=== PATIENT | female | born 2000 | race Caucasian/White ===

== ENCOUNTER 2024-09-15 08:18 | Outpatient (CLI) | payer BC, SELFPAY ==
--- NOTE | ~2024-09-15 | US_ITS ---
US breast RT limited INDICATION: Palpable right breast abnormality TECHNIQUE: Dedicated Limited right breast ultrasound COMPARISON: No prior studies for comparison. FINDINGS: The right breast is/are composed of normal heterogeneous echotexture without focal solid or cystic mass. IMPRESSION: 1: Normal right breast ultrasound. Reviewed, dictated and finalized at location A.
--- OUTSIDE RECORDS SUMMARY | 2024-09-15 08:23 | XMS_ITS | Clinical Summary ---
Author Organization [facility] Address [address] [place] [id number] Care Team Providers Care Blood Donor Recruiter Name Role Phone No, Physician Primary Care Provider Allergies Active Allergy Reactions Criticality Noted Date Comments Amoxicillin Hypotension High 04/21/2021 Medications Crysellandrea, 28, 0.3-30 mg-mcg per tablet 1 Active polymyxin B-trimethoprim (POLYTRIM) ophthalmic solution Administer 1 drop into the left eye every 3 hours while awake for 7 days 10 mL 1 Active Active Problems No known active problems Surgical History Surgery Date Site/Laterality Comments TONSILLECTOMY AND ADENOIDECTOMY Social History Tobacco Use Types Packs/Day Years Used Date Smoking Tobacco: Never Personal Safety Answer Date Recorded Getting School Help Needed Not on file 08/07 Comments Unknown Sex and Gender Information Value Date Recorded Sex Assigned at Not on file Legal Sex Female 11:45 AM PROFILE GRINDER TECHNICIAN Gender Identity Not on file Sexual Orientation Not on file Obstetrics History Last Filed Vital Signs Vital Sign Reading Time Taken Comments Blood Pressure 110/80 04/21/2021 12:01 PM PROFILE GRINDER TECHNICIAN Pulse 92 04/21/2021 12:01 PM PROFILE GRINDER TECHNICIAN Temperature 37.4 C (99.3 F) 04/21/2021 12:01 PM PROFILE GRINDER TECHNICIAN Respiratory Rate 16 04/21/2021 12:01 PM PROFILE GRINDER TECHNICIAN Oxygen Saturation 98% 04/21/2021 12:01 PM PROFILE GRINDER TECHNICIAN Inhaled Oxygen Concentration - - Weight 66.2 kg (146 lb) 04/21/2021 12:01 PM PROFILE GRINDER TECHNICIAN Height 165.1 cm (5' 5 ) 04/21/2021 12:01 PM PROFILE GRINDER TECHNICIAN Body Mass Index 24.3 04/21/2021 12:01 PM PROFILE GRINDER TECHNICIAN Plan of Treatment Not on file Insurance [employer] [place] Care Teams Blood Donor Recruiter Relationship Specialty Start Date End Date No, Physician PCP - General 04/21/21
--- OUTSIDE RECORDS SUMMARY | 2024-09-15 08:23 | XMS_ITS | Clinical Summary ---
Author Organization [facility] Address [address] [place] [id number] Care Team Providers Care Peoplesoft Business Analyst Name Role Phone Unavailable Primary Care Provider Unavailabl e Social History Tobacco Use Types Packs/Day Years Used Date Smoking Tobacco: Never Assessed Comments Unknown Sex and Gender Information Value Date Recorded Sex Assigned at Not on file Legal Sex Female 10:31 PM TECHNICAL ASSOC Gender Identity Not on file Sexual Orientation Not on file Last Filed Vital Signs Vital Sign Reading Time Taken Comments Blood Pressure 118/60 12/14/2011 5:20 PM CDT Pulse 75 12/14/2011 5:20 PM CDT Temperature - - Respiratory Rate - - Oxygen Saturation - - Inhaled Oxygen Concentration - - Weight 49.9 kg (110 lb) 12/14/2011 5:20 PM CDT Height 157.5 cm (5' 2 ) 12/14/2011 5:20 PM CDT Body Mass Index 20.12 12/14/2011 5:20 PM CDT Plan of Treatment Health Maintenance Due Date Last Done Comments Cervical Cancer Screening Pa p Smear (Age 21 to 29) Every 3 Years 1999 Cervical Cancer Screening 1999 Annual Physical 11/21/2002 HPV Vaccines (1 - 3-dose series) 11/21/2014 Hepatitis C 11/21/2017 DTaP, Tdap and Td Vaccines ( 1 - Tdap) 11/21/2018 Hepatitis B Vaccines (1 of 3 - 19+ 3-dose series) 11/21/2018 COVID-19 Vaccine (2023-2 5 season) 2024 Meningococcal B Vaccine Aged Out No l onger eligible based on patient's age to complete this topic Meningococcal Vaccine Aged Out No aracely desirae eligible based on patient's age to complete this topic Pneumococcal Vaccine: Pediat rics (0 to 5 Years) and At-Risk Patients (6 to 49 Years) Aged Out No longer eligible b ased on patient's age to complete this topic RSV Immunizations Under 20 Months Aged Out No longer eligible based on patient's age to complete this topic
--- OUTSIDE RECORDS SUMMARY | 2024-09-15 08:23 | XMS_ITS | Referral Summary ---
Author Organization [facility] Address [address] [place] [id number] Care Team Providers Care Shaft Tender Name Role Phone No, Physician Primary Care Provider [phone] Allergies Active Allergy Reactions Criticality Noted Date Comments Amoxicillin Hypotension High 04/21/2021 Medications Crysellandrea, 28, 0.3-30 mg-mcg per tablet 1 Active polymyxin B-trimethoprim (POLYTRIM) ophthalmic solution Administer 1 drop into the left eye every 3 hours while awake for 7 days 10 mL 1 Active Active Problems No known active problems Social History Tobacco Use Types Packs/Day Years Used Date Smoking Tobacco: Never Personal Safety Answer Date Recorded Getting School Help Needed Not on file 08/07 Comments Unknown Sex and Gender Information Value Date Recorded Sex Assigned at Not on file Legal Sex Female 11:45 AM HAND TUBE BENDER Gender Identity Not on file Sexual Orientation Not on file Last Filed Vital Signs Vital Sign Reading Time Taken Comments Blood Pressure 110/80 04/21/2021 12:01 PM HAND TUBE BENDER Pulse 92 04/21/2021 12:01 PM HAND TUBE BENDER Temperature 37.4 C (99.3 F) 04/21/2021 12:01 PM HAND TUBE BENDER Respiratory Rate 16 04/21/2021 12:01 PM HAND TUBE BENDER Oxygen Saturation 98% 04/21/2021 12:01 PM HAND TUBE BENDER Inhaled Oxygen Concentration - - Weight 66.2 kg (146 lb) 04/21/2021 12:01 PM HAND TUBE BENDER Height 165.1 cm (5' 5 ) 04/21/2021 12:01 PM HAND TUBE BENDER Body Mass Index 24.3 04/21/2021 12:01 PM HAND TUBE BENDER Plan of Treatment Not on file Insurance [facility] Care Teams Shaft Tender Relationship Specialty Start Date End Date No, Physician PCP - General 04/21/21
== END 2024-09-15 08:19 | disposition home or self-care (01) ==
LOC: ANHIMG 08:19
PROVIDERS: Visit Provider Obstetrics & Gynecology
DX: N63.15 Unspecified lump in the right breast, overlapping quadrants (principal)
CPT/HCPCS: 76642

== ENCOUNTER 2025-05-09 10:46 | Emergency (ER) | payer BC, SELFPAY ==
[2025-05-09 10:54] VITALS: BP 138/76; PULSE 102; RESP 19; TEMP 36.6; O2SAT 99
--- NOTE | 2025-05-09 11:02 | ED_ITS ---
HPI - URI/Sore Throat General Chief Complaint: Upper Respiratory Infection Stated Complaint: URI Time Seen by Provider: 05/09/25 11:10 Source: patient and RN notes reviewed Mode of arrival: ambulatory Limitations: no limitations History of Present Illness HPI Narrative: 24-year-old female presents Express Care complaining of upper respiratory symptoms for 3 days. Patient reports cough, congestion, sinus pressure, sore throat, fevers, body aches. Patient denies any other upper respiratory symptoms, chest pain, nausea vomiting, diarrhea, difficulty breathing, or any other symptoms. Patient taking DayQuil and NyQuil was some relief. Patient says she is having of hard time sleeping at night due to the cough. Patient denies any significant past medical problems. Related Data Home Medications ?Medication ?Instructions ?Recorded ?Confirmed ?Last Taken ?Type clindamycin phosphate 1 % topical 1 applic topical BLAINE LY 01/30/25 01/30/25 Unk nown History gel tretinoin 0.025 % topical gel 1 applic topical QHS 02/1501/30/25 Unknown History (Retin-A) Allergies Allergy/AdvReac Type Severity Reaction Status Date / Time amoxicillin Allergy Mild Rash Verified 05/09/25 10:54 Review of Systems Review of Systems: CONSTITUTIONAL: Denies fever, chills, or sweats. EYES: Denies visual changes, redness, or discharge. ENT: Denies rhinorrhea, or otalgia. Positive for congestion and sinus pressure, sore throat. CARDIOVASCULAR: Denies chest pain, palpitations, or edema. RESPIRATORY: Positive for cough. Negative for wheezing or Dyspnea. GASTROINTESTINAL: Denies abdominal pain, nausea, vomiting, or diarrhea. GENITOURINARY: Denies dysuria or hematuria. SKIN: Denies rash or itching. MUSCULOSKELETAL: Denies back pain, joint pain, or myalgia. NEUROLOGIC: Denies headache, numbness, or weakness. PSYCHIATRIC: Denies anxiety or depression. All other systems reviewed are negative, except as documented in HPI. [facility] Past Medical History Medical History Encounter for repeat Papanicolaou smear of cervix Surgical History Surgical History History of tonsillectomy and adenoidectomy [place] teeth extracted Family History Family History Other Asthma Diabetes mellitus Social History Social History Smoking status: Never smoker Alcohol intake: current Alcohol use details: socially Substance use: never Substance use type: does not use Lack of Transportation: No Lack of Food: Never True Current Housing: I Have Housing Concerned About Future Housing: No Difficulty Paying Gas/Electric Bills: No Difficulty Paying for Meds: No Currently Unemployed: No Education: Bachelor's Degree Difficulty w/ Childcare or Family Care: No Living arrangements: with family Occupation/Education: student Gender identity (if verbalized by the patient): Female Sexual Orientation (if Verbalized by the Patient): Straight or Heterosexual Comments At the time of my signature, I reviewed and agree with the nursing past medical, surgical, social, and family history. There is no relevant family history pertinent to the patient complaint. Exam Narrative: GENERAL: This is a well-nourished, well-developed adult, in no apparent distress. They are non ill-appearing, nontoxic appearing. HEAD: normocephalic, atraumatic. EYES: Sclera clear/white. Conjunctiva normal. Vision is grossly intact. Extraocular movements intact EARS: External ears normal, auditory canals clear and without drainage, TMs normal without perforation. Hearing grossly intact. NOSE: External nose normal with no obvious nasal discharge, nasal turbinates erythematous, no rhinorrhea. THROAT: Mucous membranes moist, posterior pharynx erythematous with PND.. Uvula midline. NECK: Neck supple, non-tender without lymphadenopathy, masses or thyromegaly. CARDIOVASCULAR: Regular rate and rhythm without murmurs, gallops, or rubs. RESPIRATORY: Clear to auscultation. Breath sounds equal bilaterally. No wheezes, rales, or rhonchi. SKIN: warm, Dry, intact with no suspicious lesions or rash, good texture and turgor. NEURO: awake, alert, and oriented to person, place and time. There were no obvious focal neurologic abnormalities. EXTREMITIES: No joint tenderness, effusion, or edema noted. BACK: Nontender without deformity. No CVA tenderness. Course Course Level of Care: Express Care Visit Vital Signs Vital signs: Vital Signs Temperature 97.9 F 05/09/25 10:54 Pulse Rate 102 H 05/09/25 10:54 Respiratory Rate 19 05/09/25 10:54 Blood Pressure 138/76 05/09/25 10:54 Pulse Oximetry 99 05/09/25 10:54 Oxygen Delivery Room Air 05/09/25 10:54 Temperature 97.9 F 05/09/25 10:54 Pulse Rate 102 H 05/09/25 10:54 Respiratory Rate 19 05/09/25 10:54 Blood Pressure 138/76 05/09/25 10:54 Pulse Oximetry 99 05/09/25 10:54 Oxygen Delivery Room Air 05/09/25 10:54 MDM MDM Narrative Medical decision making narrative: Rapid strep negative. Throat culture is pending. Symptoms likely viral in etiology. Will send benzonatate tablets for cough. Discussed supportive care. Discussed physical exam findings. Advised supportive measures and signs/symptoms to go to the ER. Pt is appropriate for outpt treatment and f/u. Differential Diagnosis Differential Diagnosis: Differential diagnostic considerations for upper respiratory infection include upper respiratory infection, croup, otitis media, sinusitis, viral infection, bronchitis, influenza, pharyngitis, strep, uvulitis. Critical Care Time Critical Care Time Critical Care Time: No Discharge Plan Discharge Clinical Impression: Upper respiratory infection Qualifiers: URI type: unspecified viral URI Qualified Code(s): J06.9 - Acute upper respiratory infection, unspecified Patient Disposition: Home Condition: Stable Instructions: Antibiotic Form, Upper Respiratory Infection (ED) Additional Instructions: Your rapid strep swab was negative today at [facility]. You will be notified in a few days if the culture comes back positive for strep, and appropriate antibiotics will be called in for you at that time. Your symptoms are likely due to a viral illness, which is not treated with antibiotics. Most Viral symptoms can be present for up to 7-10 days. Take Tylenol or ibuprofen as needed for fever or pain. Follow instructions on the bottle. If you take DayQuil and NyQuil do not take additional Tylenol as these medications already contains Tylenol in it. Take benzonatate tablets as needed for cough. Rest and stay hydrated. Use a humidifier night. Follow up with your PCP in 5-7 days if symptoms are not improving. Go to the ER immediately if you developed chest pain, vomiting, uncontrolled fevers, difficulty breathing or swallowing, or any serious concerns. Patient Language: Faroese Prescriptions: New benzonatate 200 mg capsule 200 mg PO BID PRN (Reason: cough) Qty: 30 0RF No Action clindamycin phosphate 1 % gel 1 applic topical DAILY tretinoin [Retin-A] 0.025 % gel 1 applic topical QHS Follow-up/Referrals: Chirag Garcia MD [Primary Care Provider, Family Practice] Stand Alone Forms: Work/School Release IP Time of Disposition: 11:18
[2025-05-09 12:03] LABS: EDSTREPNEGPOS1 Negative (Negative)
== END 2025-05-09 11:23 | disposition home or self-care (01) ==
PROVIDERS: PCP Emergency Medicine
DX: J06.9 Acute upper respiratory infection, unspecified (principal)
CPT/HCPCS: 87081; 87880; 99213; G0463